=== PATIENT | male | born 1985 | race Caucasian/White ===

== ENCOUNTER 2022-06-05 00:35 | Emergency (ER) | payer SELFPAY ==
[~2022-06-05] VITALS: Ht 165.1 cm; Wt 113.4 kg
[2022-06-05 00:36] VITALS: BP 144/82
--- NOTE | 2022-06-05 00:40 | NUR ---
TO LOBBY FOLLOWING TRIAGE
[2022-06-05] MEDS ORDERED: ALUMINUM HYD/MAG/SIMETHICONE 30 ML, DICYCLOMINE HCL LIQUID 20 MG, LIDOCAINE VISCOUS 2% ... PO ONE ×3 (01:25)
[2022-06-05] MEDS ORDERED: ONDANSETRON 4 MG/2 ML VIAL IVP ONE (01:25)
[2022-06-05] MEDS ORDERED: MORPHINE SULFATE 2 MG/ML SYR IVP ONE (01:25)
[2022-06-05] MEDS ORDERED: NACL 0.9% 1,000 ML IV SCH (01:25)
[2022-06-05] MEDS ORDERED: PANTOPRAZOLE 40 MG INJ VIAL IVP ONE (01:25)
--- NOTE | 2022-06-05 01:43 | NUR ---
AMBULATED TO BED 2
[2022-06-05 01:54] LABS: BASOPHILS % (AUTO) 0.3 % (0.0-2.0); EOSINOPHILS # (AUTO) 0.1 K/uL (0-0.4); HEMATOCRIT 44.4 % (36-52); HEMOGLOBIN 14.9 g/dL (12.0-18.0); LYMPHOCYTES # (AUTO) 3.3 K/uL (2.0-11.5); LYMPHOCYTES % (AUTO) 26.8 % (20.5-51.1); MEAN CORPUSCULAR HEMOGLOBIN 29 pg (27-31); MEAN CORPUSCULAR HGB CONC 34 g/dL (33-37); MONOCYTES # (AUTO) 1.1 K/uL (0.8-1.0); MONOCYTES % (AUTO) 8.9 % (1.7-9.3); NEUTROPHILS # (AUTO) 7.8 K/uL (1.8-7.7); PLATELET COUNT (AUTO) 385 K/uL (140-450); RED BLOOD CELL COUNT(AUTO) 5.11 MIL/uL (4.20-6.10); RED CELL DISTRIBUTION WIDTH 13.1 % (11.6-13.7); WHITE BLOOD COUNT (AUTO) 12.3 K/uL (4.8-10.8)
[2022-06-05 02:13] LABS: ANION GAP 12.6 (8-16); CARBON DIOXIDE 29.3 mmol/L (21-32); POTASSIUM 3.9 mmol/L (3.5-5.1); TOTAL BILIRUBIN 0.2 mg/dL (0.0-1.0)
--- NOTE | 2022-06-05 02:35 | NUR ---
36 Y/O MALE BIBS FROM HOME, C/O ABD PAIN X2 DAYS. PT STATES 8/10 DIFFUSE UPPER ABD PAIN. DENIES N/V/D, COUGH, FEVER, CP, OR SOB. A/OX4, UNLABORED BREATHING, AMBULATORY. PT STATES THE PAIN IS WORSE SHORTLY AFTER EATING. DENIES HX/RX NKA
[2022-06-05] MEDS ORDERED: MORPHINE SULFATE 4 MG/ML SYR IM ONE (03:50)
--- NOTE | 2022-06-05 04:20 | NUR ---
PT RETURNED FROM CT
--- NOTE | 2022-06-05 04:31 | NUR ---
COVID/ZELDA SWAB COLLECTED AND WALKED TO LAB
[2022-06-05] MEDS ORDERED: HYDR-5080 PO (05:48)
[2022-06-05 06:00] VITALS: BP 132/78
--- NOTE | 2022-06-05 06:00 | NUR ---
Patient discharged with v/s stable. Written and verbal after care instructions given and explained. Patient alert, oriented and verbalized understanding of instructions. Ambulatory with steady gait. All questions addressed prior to discharge. ID band removed. Patient advised to follow up with PMD. Rx of NORCO (7.5-325) given. Patient educated on indication of medication including possible reaction and side effects. Opportunity to ask questions provided and answered. A/OX4, VSS, UNLABORED BREATHING, AMBULATORY, AND CALM DEMEANOR.
== END 2022-06-05 06:00 | disposition home or self-care (01) ==
LOC: MED 00:35
DX: K85.90 Acute pancreatitis without necrosis or infection, unspecified (principal); Z20.822 Contact with and (suspected) exposure to COVID-19
CPT/HCPCS: 36415; 74177; 80053; 83690; 84484; 85025; 87426; 96361; 96372; 96374; 96375; 99285; C9113; J2270; J2405; J7030; Q9967